=== PATIENT | male | born 1995 | race Two or more races ===

== ENCOUNTER 2020-11-11 11:37 | Inpatient (IN) | payer OTHER ==
[~2020-11-11] VITALS: Ht 182.9 cm; Wt 86.0 kg
[2020-11-11] VITALS (8 sets, daily range): BP systolic 101–119; BP diastolic 47–72
[2020-11-11] MEDS ORDERED: fentaNYL PF VIAL 100 MCG/2 ML VIAL IVP PRN ×4 (12:00→12:15)
[2020-11-11] MEDS ORDERED: ONDANSETRON PF 4 MG/2 ML VIAL. IVP PRN ×2 (12:00→14:00)
[2020-11-11] MEDS: IV NORMAL SALINE 1000ML BAG 1,000 ML IV SCH ×2 (12:00→20:00)
[2020-11-11] MEDS ORDERED: IV RINGERS,LACTATED 1000ML 1,000 ML IV SCH (12:15)
[2020-11-11] MEDS ORDERED: PROCHLORPERAZINE 10 MG/2 ML VIAL. IVP PRN (12:15)
[2020-11-11] MEDS ORDERED: MORPHINE SULFATE 2 MG/ML INJ. IVP PRN (12:15)
[2020-11-11] MEDS ORDERED: HYDROmorphone 2 MG/ML VIAL IVP PRN (12:15)
[2020-11-11] MEDS ORDERED: ROCURONIUM 50 MG/5 ML VIAL. ONE (12:17)
[2020-11-11] MEDS ORDERED: fentaNYL PF VIAL 100 MCG/2 ML VIAL ONE (12:17)
[2020-11-11] MEDS ORDERED: PROPOFOL 10 MG/ML (20ML) VIAL. IV ONE (12:17)
[2020-11-11] MEDS ORDERED: ONDANSETRON PF 4 MG/2 ML VIAL. ONE (12:17)
[2020-11-11] MEDS ORDERED: LIDOCAINE 1% PF 5 ML VIAL. ONE (12:17)
[2020-11-11] MEDS ORDERED: MIDAZOLAM HCL/PF 2 MG/2 ML VIAL. ONE (12:18)
[2020-11-11] MEDS ORDERED: cefOXitin SODIUM IV Push 2 GM VIAL. IVP PRN (12:30)
--- NOTE | 2020-11-11 12:36 | PDOC2 ---
CONSULT Date of Consult Date of Consult DATE: 11/11/20 TIME: 12:32 Reason for Consult Reason for Consult: abd pain Referring Physician Referring Physician: Dr. Sanchez Identification/Chief Complaint Chief Complaint abd pain Source Source: Chart review, Patient History of Present Illness Reason for Visit: 25 yo M with multiple episodes of abd pain, multiple previous visits at [facility] without obvious findings. 1-3 days duration. Pain still present and worsening. Past Medical History Cardiovascular: No pertinent hx Past Surgical History Past Surgical History: No pertinent history Family History Family History: No Significant Social History <1 pack per day ALCOHOL: social Current Medications Current Medications Current Medications Piperacillin Sod/ Tazobactam Sod 3.375 gm/Sodium Chloride 50 ml @ 100 mls/hr Q6HRS IV ; Start 11/11/20 at 13:00 Cefoxitin Sodium (Mefoxin) 2 gm 1X PREOP PRN IVP PRIOR TO PROCEDURE; Start 11/11/20 at 12:30 Sodium Chloride 1,000 ml @ 125 mls/hr Q8H IV ; Start 11/11/20 at 12:00 Fentanyl Citrate (Fentanyl 2ml Vial) 50 mcg PRN Q2HR PRN IVP PAIN; Start 11/11/20 at 12:00 Fentanyl Citrate (Fentanyl 2ml Vial) 25 mcg PRN Q2HR PRN IVP PAIN; Start 11/11/20 at 12:00 Ondansetron HCl (Zofran) 4 mg PRN Q4HRS PRN IVP NAUSEA/VOMITING; Start 11/11/20 at 12:00 Fentanyl Citrate (Fentanyl 2ml Vial) 25 mcg PRN Q5MIN PRN IVP MILD PAIN 1-3; Start 11/11/20 at 12:15; Stop 11/12/20 at 12:14 Fentanyl Citrate (Fentanyl 2ml Vial) 50 mcg PRN Q5MIN PRN IVP MODERATE PAIN 4- 6; Start 11/11/20 at 12:15; Stop 11/12/20 at 12:14 Morphine Sulfate (Morphine Sulfate) 1 mg PRN Q10MIN PRN IVP SEVERE PAIN 7-10; Start 11/11/20 at 12:15; Stop 11/12/20 at 12:14 Ringer's Solution 1,000 ml @ 30 mls/hr Q24H IV ; Start 11/11/20 at 12:15; Stop 11/12/20 at 00:14 Hydromorphone HCl (Dilaudid) 0.5 mg PRN Q10MIN PRN IVP SEVERE PAIN 7-10, 2nd CHOICE; Start 11/11/20 at 12:15; Stop 11/12/20 at 12:14 Prochlorperazine Edisylate (Compazine) 5 mg PACU PRN PRN IVP NAUSEA, MRX1; Start 11/11/20 at 12:15; Stop 11/12/20 at 12:14 Propofol (Diprivan) 200 mg STK-MED ONCE IV ; Start 11/11/20 at 12:17; Stop 11/11/20 at 12:17; Status DC Lidocaine HCl (Xylocaine-Mpf 1% 5ml Vial) 5 ml STK-MED ONCE .ROUTE ; Start 11/11/20 at 12:17; Stop 11/11/20 at 12:17; Status DC Ondansetron HCl (Zofran) 4 mg STK-MED ONCE .ROUTE ; Start 11/11/20 at 12:17; Stop 11/11/20 at 12:17; Status DC Rocuronium [place] (Zemuron) 50 mg STK-MED ONCE .ROUTE ; Start 11/11/20 at 12:17; Stop 11/11/20 at 12:17; Status DC Fentanyl Citrate (Fentanyl 2ml Vial) 100 mcg STK-MED ONCE .ROUTE ; Start 11/11/20 at 12:17; Stop 11/11/20 at 12:18; Status DC Midazolam HCl (Versed) 2 mg STK-MED ONCE .ROUTE ; Start 11/11/20 at 12:18; Stop 11/11/20 at 12:18; Status DC Allergies Allergies: Coded Allergies: No Known Drug Allergies (Unverified , 11/11/20) ROS Gastrointestinal: Yes Abdominal Pain Physical Exam General: Alert, Oriented X3, Cooperative, moderate distress HEENT: Atraumatic Lungs: Normal air movement Abdomen: Soft, Other (TTP epigastric and RLQ) Extremities: No clubbing, No cyanosis Skin: No rashes, No breakdown Neuro: Normal speech, Sensation intact Psych/Mental Status: Mental status NL, Mood NL Labs Labs WBC at [facility] elevated Images Images CT c/w appendicitis Assessment/Plan Assessment/Plan appendicitis symptoms and history not completely c/w appendicitis, but favor laparoscopic appendectomy. If pain not resolved, may need to consider further w/u. R/R/B/a d/w pt. Risks, including, but not limited to: bleeding, infection, damage to surrounding structures, risk of anesthesia, risk of open. He appears to understand, his questions are answered and he elects to proceed. Thanks for consult! MESFIN DALY MD Nov 11, 2020 12:36
[2020-11-11] MEDS ORDERED: BUPIVACAINE-EPI 0.5%-1:200000 MPF 30 ML VIAL. ONE (12:39)
--- NOTE | 2020-11-11 12:59 | PDOC1 ---
History and Physical Date of Admission Date of Admission DATE: 11/11/20 TIME: 12:59 Identification/Chief Complaint Chief Complaint rlq pain x 8 hrs History of Present Illness History of Present Illness 25 yr old male with 18 hr worsening , ct concerning for early appendicitis multiple episodes of abd pain, multiple previous visit at [facility] in [facility] this AM WBC'S elevated impression ACUTE Epigastric and RLQ Abdominal pain / Abnormal CT abdomen CONCERNING FOR EARLY APPENDICITIS / Leukocytosis ADMIT / general surgery consult / NPO / IV FLUIDS // DVT prophylaxis / iv protonix / laparoscopic appendectomy. Past Medical History Cardiovascular: No pertinent hx Past Surgical History Past Surgical History: No pertinent history Family History Family History: No Significant, Hypertension Social History Smoke: <1 pack per day ALCOHOL: social Current Medications Current Medications Current Medications Piperacillin Sod/ Tazobactam Sod 3.375 gm/Sodium Chloride 50 ml @ 100 mls/hr Q6HRS IV ; Start 11/11/20 at 13:00 Cefoxitin Sodium (Mefoxin) 2 gm 1X PREOP PRN IVP PRIOR TO PROCEDURE; Start 11/11/20 at 12:30 Sodium Chloride 1,000 ml @ 125 mls/hr Q8H IV ; Start 11/11/20 at 12:00 Fentanyl Citrate (Fentanyl 2ml Vial) 50 mcg PRN Q2HR PRN IVP PAIN; Start 11/11/20 at 12:00 Fentanyl Citrate (Fentanyl 2ml Vial) 25 mcg PRN Q2HR PRN IVP PAIN; Start 11/11/20 at 12:00 Ondansetron HCl (Zofran) 4 mg PRN Q4HRS PRN IVP NAUSEA/VOMITING; Start 11/11/20 at 12:00 Fentanyl Citrate (Fentanyl 2ml Vial) 25 mcg PRN Q5MIN PRN IVP MILD PAIN 1-3; Start 11/11/20 at 12:15; Stop 11/12/20 at 12:14 Fentanyl Citrate (Fentanyl 2ml Vial) 50 mcg PRN Q5MIN PRN IVP MODERATE PAIN 4- 6; Start 11/11/20 at 12:15; Stop 11/12/20 at 12:14 Morphine Sulfate (Morphine Sulfate) 1 mg PRN Q10MIN PRN IVP SEVERE PAIN 7-10; Start 11/11/20 at 12:15; Stop 11/12/20 at 12:14 Ringer's Solution 1,000 ml @ 30 mls/hr Q24H IV ; Start 11/11/20 at 12:15; Stop 11/12/20 at 00:14 Hydromorphone HCl (Dilaudid) 0.5 mg PRN Q10MIN PRN IVP SEVERE PAIN 7-10, 2nd CHOICE; Start 11/11/20 at 12:15; Stop 11/12/20 at 12:14 Prochlorperazine Edisylate (Compazine) 5 mg PACU PRN PRN IVP NAUSEA, MRX1; Start 11/11/20 at 12:15; Stop 11/12/20 at 12:14 Propofol (Diprivan) 200 mg STK-MED ONCE IV ; Start 11/11/20 at 12:17; Stop 11/11/20 at 12:17; Status DC Lidocaine HCl (Xylocaine-Mpf 1% 5ml Vial) 5 ml STK-MED ONCE .ROUTE ; Start 11/11/20 at 12:17; Stop 11/11/20 at 12:17; Status DC Ondansetron HCl (Zofran) 4 mg STK-MED ONCE .ROUTE ; Start 11/11/20 at 12:17; Stop 11/11/20 at 12:17; Status DC Rocuronium [place] (Zemuron) 50 mg STK-MED ONCE .ROUTE ; Start 11/11/20 at 12:17; Stop 11/11/20 at 12:17; Status DC Fentanyl Citrate (Fentanyl 2ml Vial) 100 mcg STK-MED ONCE .ROUTE ; Start 11/11/20 at 12:17; Stop 11/11/20 at 12:18; Status DC Midazolam HCl (Versed) 2 mg STK-MED ONCE .ROUTE ; Start 11/11/20 at 12:18; Stop 11/11/20 at 12:18; Status DC Bupivacaine HCl/ Epinephrine Bitart (Sensorcain-Epi 0.5%-1:529287 Mpf) 30 ml STK-MED ONCE .ROUTE ; Start 11/11/20 at 12:39; Stop 11/11/20 at 12:40; Status DC Allergies Allergies: Coded Allergies: No Known Drug Allergies (Unverified , 11/11/20) ROS General: No: Chills, Night Sweats, Fatigue, Malaise, Appetite, Other PSYCHOLOGICAL ROS: No: Anxiety, Behavioral Disorder, Concentration difficultie, Decreased libido, Depression, Disorientation, Hallucinations, Hostility, Irritablity, Memory difficulties, Mood Swings, Obsessive thoughts, Physical abuse, Sexual abuse, Sleep disturbances, Suicidal ideation, Other Eyes: No Blurry vision, No Decreased vision, No Double vision, No Dry eyes, No Excessive tearing, No Eye Pain, No Itchy Eyes, No Loss of vision, No Photopho thaddeus, No Scotomata, No Uses contacts, No Uses glasses, No Other HEENT: No: Heacaches, Visual Changes, Hearing change, Nasal congestion, Nasal discharge, Oral lesions, Sinus pain, Sore Throat, Epistaxis, Sneezing, Snoring, Tinnitus, Vertigo, Vocal changes, Other ALLERGY AND IMMUNOLOGY: No: Hives, Insect Bite Sensitivity, Itchy/Watery Eyes, Nasal Congestion, Post Nasal Drip, Seasonal Allergies, Other Hematological and Lymphatic: No: Bleeding Problems, Blood Clots, Blood Transfusions, Brusing, Night Sweats, Pallor, Swollen Lymph Nodes, Other ENDOCRINE: No: Breast Changes, Galactorrhea, Hair Pattern Changes, Hot Flashes, Malaise/lethargy, Mood Swings, Palpitations, Polydipsia/polyuria, Skin Changes, Temperature Intolerance, Unexpected Weight Changes, Other Breast: No New/Changing Breast Lumps, No Nipple changes, No Nipple discharge, No Other Respiratory: No: Cough, Hemoptysis, Orthopnea, Pleuritic Pain, Shortness of breath, SOB with excertion, Sputum Changes, Stridor, Tachypnea, Wheezing, Other Cardiovascular: No Chest Pain, No Palpitations, No Orthopnea, No Paroxysmal Noc. Dyspnea, No Edema, No Lt Headedness, No Other Gastrointestinal: Yes Nausea, Yes Abdominal Pain; No Vomiting, No Diarrhea, No Constipation, No Melena, No Hematochezia, No Other Genitourinary: No Dysuria, No Frequency, No Incontinence, No Hematuria, No Retention, No Discharge, No Urgency, No Pain, No Flank Pain, No Other, No , No , No , No , No , No , No Musculoskeletal: No Gait Disturbance, No Joint Pain, No Joint Stiffness, No Joint Swelling, No Muscle Pain, No Muscular Weakness, No Pain In:, No Swelling In:, No Other Neurological: No Behavorial Changes, No Bowel/Bladder ControlChng, No Confusion, No Dizziness, No Gait Disturbance, No Headaches, No Impaired Coord/balance, No Memory Loss, No Numbness/Tingling, No Seizures, No Speech Problems, No Tremors, No Visual Changes, No Weakness, No Other Skin: No Dry Skin, No Eczema, No Hair Changes, No Lumps, No Mole Changes, No Mottling, No Nail Changes, No Pruritus, No Rash, No Skin Lesion Changes, No Other, No Acne Physical Exam General: Alert, Oriented X3, Cooperative, mild distress HEENT: PERRLA, EOMI, Mucous membr. moist/pink Lungs: Clear to auscultation, Normal air movement Heart: RRR, no thrills, no gallops, no murmurs Breasts: Not examined Abdomen: Soft, Other (rlq pain) Rectal Exam: not examined PELVIC: Examination not indicated Extremities: No cyanosis Neuro: Normal speech, Sensation intact, Cranial nerves 3-12 NL Psych/Mental Status: Mental status NL, Mood NL Vitals Vitals Vital Signs Date Time Temp Pulse Resp B/P (MAP) Pulse Ox O2 Delivery O2 Flow Rate FiO2 11/11/20 12:31 98.4 63 16 132/70 99 Room Air 98.4 VTE Prophylaxis Ordered VTE Prophylaxis Devices: No VTE Pharmacological Prophylaxi: Yes Assessment/Plan Assessment/Plan impression ACUTE Epigastric and RLQ Abdominal pain Abnormal CT abdomen CONCERNING FOR EARLY APPENDICITIS Leukocytosis plan ADMIT general surgery consult NPO IV FLUIDS DVT prophylaxis iv protonix laparoscopic appendectomy. d/w er Justifications for Admission Other Justification NAFISA GLOVER MD Nov 11, 2020 12:59
[2020-11-11] MEDS: PIPERACILLIN/TAZOBACTAM 3.375 GM in IV NORMAL SALINE 50ML 50 ML IV SCH ×2 (13:00→17:50)
[2020-11-11] MEDS ORDERED: NEOSTIGMINE METHYLSULFATE 5 MG/5 ML SYRINGE. ONE (13:14)
[2020-11-11] MEDS ORDERED: KETOROLAC 30 MG/ML VIAL. ONE (13:14)
[2020-11-11] MEDS ORDERED: GLYCOPYRROLATE 1 MG/5 ML VIAL. ONE (13:15)
[2020-11-11] MEDS ORDERED: guaiFENesin ORAL 200 MG/10 ML LIQUID. PO PRN (13:30)
[2020-11-11] MEDS ORDERED: DOCUSATE SODIUM 100 MG CAPSULE. PO PRN (13:30)
[2020-11-11] MEDS ORDERED: diphenhydrAMINE 50 MG/ML VIAL IVP PRN (13:30)
[2020-11-11] MEDS ORDERED: LORazepam 0.5 MG TABLET PO PRN (13:30)
[2020-11-11] MEDS ORDERED: 0.9 % SODIUM CHLORIDE 10 ML DISP.SYRIN. IV PRN ×2 (13:30→14:00)
[2020-11-11] MEDS ORDERED: HYDROmorphone 2 MG/ML VIAL ONE (13:31)
[2020-11-11] MEDS: IV RINGERS,LACTATED 1000ML 1,000 ML IV SCH ×2 (14:00→22:35)
[2020-11-11] MEDS ORDERED: NALOXONE 0.4 MG/ML VIAL. IV PRN (14:00)
[2020-11-11] MEDS ORDERED: IV NORMAL SALINE 1000ML BAG 1,000 ML IV SCH (14:00)
--- NOTE | 2020-11-11 14:06 | PDOC4 ---
OPERATIVE NOTE Date: Date: Nov 11, 2020 Pre-Op Diagnosis: Appendicitis Post-Op Diagnosis: same Procedure Performed: laparoscopic appendectomy Surgeon: Ladarius Daly Anesthesia Type: GETA plus local Blood Loss: 50 Specimans Obtained: appendix Findings: indurated appendix, no perforation, mobile cecum, no hernia, normal bowel colon otherwise, normal liver, normal gallbladder, normal stomach and duodenum Complications: none Operative Note: After obtaining informed consent, patient was taken to OR, induced under GETA and prepped in the usual fashion. 5 mm port placed LLQ and suprapubic, 12 port placed umbilical, all under laparoscopic guidance. Abdominal cavity was explored and noted as above. Appendix was grasped. Defect created in mesoappendix. General load MINISTERIO taken across base of appendix. Vascular load taken across mesoappendix. Additional hemostasis obtained on staple lines using clips. Appendix placed in bag, delivered and sent to pathology. Copious irrigation. No evidence of bleeding or other pathology. Ports removed without bleeding. Fascia repaired with 0 vicryl. Skin repaired with 4 0 monocryl. Dressing placed. Patient tolerated procedure well and sent to PACU in stable condition. All counts correct. Wound class is 3. MESFIN DALY MD Nov 11, 2020 14:06
[2020-11-11] MEDS: HYDROcodone/APAP 5/325MG 1 TAB TABLET PO PRN (20:34)
[2020-11-11] MEDS: DOCUSATE SODIUM 100 MG CAPSULE. PO SCH (20:34)
[2020-11-12] MEDS: PIPERACILLIN/TAZOBACTAM 3.375 GM in IV NORMAL SALINE 50ML 50 ML IV SCH ×2 (00:09→05:29)
[2020-11-12] MEDS: HYDROcodone/APAP 5/325MG 1 TAB TABLET PO PRN ×3 (02:12→12:09)
[2020-11-12] MEDS: IV NORMAL SALINE 1000ML BAG 1,000 ML IV SCH (05:29)
[2020-11-12 07:00] VITALS: BP 125/68
[2020-11-12] MEDS: DOCUSATE SODIUM 100 MG CAPSULE. PO SCH (07:45)
--- NOTE | 2020-11-12 08:37 | PDOC ---
SURGICAL PROGRESS NOTE DATE: 11/12/20 TIME: 08:35 Subjective doing pretty well tolerating diet pain managed Vital Signs Vital Signs Date Time Temp Pulse Resp B/P (MAP) Pulse Ox O2 Delivery O2 Flow Rate FiO2 11/12/20 03:00 18 Room Air 11/11/20 23:00 98.7 70 95 10.0 98.7 I&O Intake and Output 11/12/20 07:00 Intake Total 2800 ml Output Total 100 ml Balance 2700 ml Intake Oral 200 ml IV Total 2600 ml Output Urine Total 50 ml Estimated Blood Loss 50 ml # Voids 3 General: Alert, Oriented X3, Cooperative Abdomen: Soft, Other (soft, ND, lap dressings dry) Problem List s/p appy ok to dc home FU 2 weeks Justicifation of Admission Dx: Justifications for Admission: Justification of Admission Dx: Yes Comments: appendicitis SAM MYLES [employer] Nov 12, 2020 08:37
[2020-11-12] MEDS ORDERED: ENOXAPARIN 40 MG/0.4 ML SYRINGE. SQ SCH (09:00)
[2020-11-12 11:00] VITALS: BP 132/77
--- NOTE | 2020-11-12 11:25 | PDOC ---
[employer] PROGRESS NOTE Date of Service DOS: DATE: 11/12/20 TIME: 11:22 Chief Complaint Chief Complaint ACUTE Epigastric and RLQ Abdominal pain Abnormal CT abdomen CONCERNING FOR EARLY APPENDICITIS Leukocytosis plan ADMIT general surgery consult NPO IV FLUIDS DVT prophylaxis iv protonix laparoscopic appendectomy. History of Present Illness History of Present Illness 25 yr old male with 18 hr worsening , ct concerning for early appendicitis multiple episodes of abd pain, multiple previous visit at [facility] in [facility] this AM WBC'S elevated impression ACUTE Epigastric and RLQ Abdominal pain / Abnormal CT abdomen CONCERNING FOR EARLY APPENDICITIS / Leukocytosis ADMIT / general surgery consult / NPO / IV FLUIDS // DVT prophylaxis / iv protonix / laparoscopic appendectomy. 11/12/2020: Patient states he feels well. Only reports some mildmoderate incisional tenderness. Tolerating diet well. Per general surgery, okay to discharge home with follow-up in 2 weeks. Greater than 30 minutes spent managi ng discharge of this patient. Vitals/I&O Vitals/I&O: Vital Signs Date Time Temp Pulse Resp B/P (MAP) Pulse Ox O2 Delivery O2 Flow Rate FiO2 11/12/20 07:00 97.7 82 18 125/68 (87) 100 Room Air 97.7 11/11/20 23:00 10.0 I & O 11/11/20 11/11/20 11/12/20 15:00 23:00 07:00 Intake Total 700 ml 1100 ml 1000 ml Output Total 100 ml Balance 600 ml 1100 ml 1000 ml Physical Exam General: Alert, Oriented X3, Cooperative Heart: Regular rate Lungs: Clear Abdomen: Soft, Other (soft, ND, lap dressings dry) Extremities: No cyanosis Skin: No rashes, No breakdown Comment Review of Relevant I have reviewed the following items daria (where applicable) has been applied. Medications: Current Medications Medications (Trade) Dose Ordered Sig/Bulmaro Route PRN Reason Start Time Stop Time Status Last Admin Dose Admin Piperacillin Sod/ Tazobactam Sod 3.375 gm/Sodium Chloride 50 ml @ 100 mls/hr Q6HRS IV 11/11/20 13:00 11/12/20 05:29 Sodium Chloride 1,000 ml @ 125 mls/hr Q8H IV 11/11/20 12:00 11/12/20 05:29 Bupivacaine HCl/ Epinephrine Bitart (Sensorcain-Epi 0.5%-1:993703 Mpf) 30 ml STK-MED ONCE .ROUTE 11/11/20 12:39 11/11/20 12:40 DC 11/11/20 13:20 Acetaminophen/ Hydrocodone Bitart (Lortab 5/325) 1 tab PRN Q4HRS PRN PO MILD PAIN 1-3 11/11/20 14:00 11/12/20 07:46 Docusate Sodium (Colace) 100 mg BID PO 11/11/20 21:00 11/12/20 07:45 Justifications for Admission Other Justification acute appendicitis SHANNAN HOLLAND MD Nov 12, 2020 11:25
--- NOTE | 2020-11-12 11:26 | PDOC3 ---
Discharge Summary Visit Information Date of Admission: Nov 11, 2020 Date of Discharge: Nov 12, 2020 Brief Hospital Course Allergies Allergies Coded Allergies Type Severity Reaction Last Updated Verified No Known Drug Allergies 11/11/20 No Vital Signs Vital Signs Date Time Temp Pulse Resp B/P (MAP) Pulse Ox O2 Delivery O2 Flow Rate FiO2 11/12/20 07:00 97.7 82 18 125/68 (87) 100 Room Air 97.7 11/11/20 23:00 10.0 Brief Hospital Course Mr. Salmeron is a 25 old male who presented with acute appendicitis. Consultation placed to general surgery. He had laparoscopic appendectomy. Tolerated his diet following surgery. He was discharged home with self-care and recommended to follow-up with general surgery in 2 weeks. Discharge Information Condition at Discharge: Improved Follow Up: Weeks Disposition/Orders: D/C to Home Justicifation of Admission Dx: Justifications for Admission: Justification of Admission Dx: Yes SHANNAN HOLLAND MD Nov 12, 2020 11:26
[2020-11-12] MEDS ORDERED: HYDR-2761 PO (11:30)
--- NOTE | 2020-11-12 12:29 | NUR ---
SW following. Discussed with RN, pt from home, room air, full liquid diet. Pt had surgery 11/11/20. Discharge order for home with self care.
--- NOTE | 2020-11-12 13:00 | NUR ---
patient discharged home with friend. meds and follow up reviewed. patient was provided with incision care and restrictions. IV removed intact. pt stable upon dc.
--- NOTE | 2020-11-12 17:07 | PATHOLOGY ---
[facility] Accession Number: [id number] . 01 Material submitted: . appendix - APPENDIX . 02 Diagnosis: Appendix, laparoscopic appendectomy: - Acute appendicitis with serosal exudate. (JPM:jason; 11/12/2020) S 11/12/2020 1519 Local . 02 Comment: There is no evidence of perforation. (JPM:jason; 11/12/2020) . 02 Electronically signed: . Bert Fuller MD, Pathologist NPI- [id number] . 01 Gross description: . Fixative: Formalin Labeled: Appendix Appendix length: 10.2 cm Appendix diameter: 0.9 cm Mesoappendix: 1.8 cm Proximal margin: Stapled Serosa: [place] with moderate vasculature Cut surface: Dilated lumen filled with blood coagulum admixed with fibrinopurulent exudate Luminal diameter: Up to 0.7 cm Perforation: None identified Lesions/abnormalities: None identified . Proximal margin and bisected tip in cassette A1. Additional parts sales representative cross-sections in cassette A2. ([facility]; 11/11/2020) QAC/QAC 11/11/2020 1700 Local . 02 Pathologist provided ICD-10: K35.80 . 02 CPT . 995940 Specimen Comment: A courtesy copy of this report has been sent to [phone] Specimen Comment: Report sent to Performed at: 01 [facility] [address], [place] [id number] MD Shiva Burgess MD Phone: [phone] Performed at: 02 [facility] [address] [place], [place] [id number] MD Bert Fuller MD Phone: [phone]
== END 2020-11-12 14:00 | disposition home or self-care (01) | DRG 343 ==
LOC: 5 NORTH 11:37
PROVIDERS: ADMIT Family Medicine; ATTEND Family Medicine
PROC: 0DTJ4ZZ Resection of Appendix, Percutaneous Endoscopic Approach (ICD-10-PCS; principal; 2020-11-11 12:45)
DX: K35.80 Unspecified acute appendicitis (principal); F17.210 Nicotine dependence, cigarettes, uncomplicated; D72.829 Elevated white blood cell count, unspecified; Z82.49 Family history of ischemic heart disease and other diseases of the circulatory system
CPT/HCPCS: A4223; A4314; A4930; A6219; J1170; J1885; J2250; J2405; J2543; J2704; J2710; J3010; J3490; J7030; G0378